=== PATIENT | male | born 1975 | race African-American/Black ===

== ENCOUNTER 2020-01-05 10:42 | Emergency (ER) | payer SELFPAY ==
[~2020-01-05] VITALS: Ht 157.5 cm; Wt 59.0 kg
[2020-01-05 10:50] VITALS: Ht 157.5 cm; Wt 59.0 kg
[2020-01-05 13:44] VITALS: BP 134/89
== END 2020-01-05 13:44 | disposition other institution (70) ==
LOC: ED 10:42
DX: S13.4XXA Sprain of ligaments of cervical spine, initial encounter (principal); V49.9XXA Car occupant (driver) (passenger) injured in unspecified traffic accident, initial encounter; Y93.I9 Activity, other involving external motion; Y92.413 State road as the place of occurrence of the external cause; Y99.8 Other external cause status

== ENCOUNTER 2020-01-05 10:42 | Emergency (ER) | payer OTHER | END 2020-01-05 14:03 | disposition other institution (70) | LOC: ED 10:42 | DX: Z02.89 Encounter for other administrative examinations (principal) ==